=== PATIENT | male | born 1940 | race Hispanic/Latino ===

== ENCOUNTER 2016-08-25 10:07 | Emergency (ER) | payer MEDICARE ==
[2016-08-25 10:54] VITALS: BMI 21.9
[2016-08-25 11:02] VITALS: BP 146/74; PULSE 98; RESP 20; TEMP 98.2; O2SAT 99
--- NOTE | 2016-08-25 11:33 | C.PDOC ---
History Of Present Illness 76 year old patient, with a past medical history of hypertension and diverticulitis, presents to the ED complaining of LLQ pain for the past 3-4 days. Patient states it feels like diverticulitis. He's had multiple episodes of similar pain. Patient reports he used to get antibiotic prescriptions from his GI doctor, but he recently so he hasn't gotten any medications. Patient also notes associated symptoms of nausea, vomiting and constipation. Patient denies fever, chills, urinary symptoms, or back pain. Time Seen by Provider: 08/25/16 10:18 Chief Complaint (Nursing): Abdominal Pain History Per: Patient History/Exam Limitations: no limitations Onset/Duration Of Symptoms: Days (3-4) Current Symptoms Are (Timing): Still Present Context: Other Severity: Mild Pain Scale Rating Of: 3 Location Of Pain/Discomfort: LLQ Radiation Of Pain To:: None Quality Of Discomfort: "Pain" Associated Symptoms: Nausea, Vomiting, Constipation Exacerbating Factors: None Alleviating Factors: None Recent travel outside of the [place]: No Past Medical History Reviewed: Historical Data, Nursing Documentation, Vital Signs Vital Signs: Last Vital Signs Temp 98.2 F 08/25/16 10:30 Pulse 98 H 08/25/16 10:30 Resp 20 08/25/16 10:30 BP 146/74 08/25/16 10:30 Pulse Ox 99 08/25/16 12:15 - Medical History PMH: Diverticulitis, HTN - [facility] Procedures ENDO RECTUM POLYPECTOMY (01/24/04) ENDOSC POLYPECTOMY OF LG INTEST (02/25/06) ETHMOIDECTOMY (01/19/01) FLEXIBLE SIGMOIDOSCOPY (10/25/03) FRONTAL SINUSOTOMY (01/19/01) INTRANAS LES DESTRUCTION (01/19/01) INTRANASAL ANTROTOMY (01/19/01) SPHENOIDOTOMY (01/19/01) SUBMUC NASAL SEPT RESECT (01/19/01) Family History: States: Unknown Family Hx - Social History Hx Alcohol Use: No Hx Substance Use: No - Immunization History Hx Tetanus Toxoid Vaccination: No Hx Influenza Vaccination: No Hx Pneumococcal Vaccination: No Review Of Systems Except As Marked, All Systems Reviewed And Found Negative. Constitutional: Negative for: Fever, Chills Gastrointestinal: Positive for: Nausea, Vomiting, Abdominal Pain (LLQ), Constipation Genitourinary: Negative for: Dysuria, Hematuria Musculoskeletal: Negative for: Back Pain Physical Exam - Physical Exam Appears: Non-toxic, No Acute Distress Skin: Warm, Dry Head: Atraumatic, Normacephalic Neck: Normal ROM, Supple Chest: Symmetrical Cardiovascular: Rhythm Regular Respiratory: Normal Breath Sounds, No Rales, No Rhonchi, No Wheezing Gastrointestinal/Abdominal: Soft, Tenderness (LLQ), No Guarding, No Rebound Back: Normal Inspection, No CVA Tenderness Extremity: Normal ROM Neurological/Psych: Oriented x3, Normal Speech, Normal Cognition Gait: Steady ED Course And Treatment O2 Sat by Pulse Oximetry: 99 (room air) Pulse Ox Interpretation: Normal Medical Decision Making Medical Decision Making: Patient refuses CT scan and blood work. He requests trial antibiotics. Disposition - Disposition Disposition: HOME/ ROUTINE Disposition Time: 11:32 Condition: STABLE Additional Instructions: Please follow up with your doctor. Return to the ER for any worsening symptoms or for any other concerns. Prescriptions: Ciprofloxacin HCl [Cipro] 500 mg PO BID #20 tab metroNIDAZOLE [Flagyl] 500 mg PO TID #30 tab Instructions: Diverticulitis (ED) Forms: General Discharge Instructions - Clinical Impression Clinical Impression: Abdominal pain - Scribe Statement The provider has reviewed the documentation as recorded by the Tyroneibradha Reyna Provider Attestation: All medical record entries made by the Tyroneibradha were at my direction and personally dictated by me. I have reviewed the chart and agree that the record accurately reflects my personal performance of the history, physical exam, medical decision making, and the department course for this patient. I have also personally directed, reviewed, and agree with the discharge instructions and disposition.
== END 2016-08-25 11:42 | disposition home or self-care (01) ==
LOC: C.ER 10:07
DX: R10.32 Left lower quadrant pain (principal)